=== PATIENT | female | born 1970 | race Caucasian/White ===

== ENCOUNTER 2024-09-01 20:49 | Emergency (ER) | payer OTHER, SELFPAY ==
[2024-09-01 20:52] VITALS: BP 130/90
[2024-09-01 21:18] LABS: % Eosinophils 1.8 % (0-6); % Immature Granulocytes 0.1 % (0-0.5); % Lymphocytes 32.6 % (20.5-51.1); % Monocytes 6.6 % (1.7-9.3); % Neutrophils 57.9 % (42.2-75.2); Absolute Basophils 0.1 10^3/uL (0-0.2); Absolute Eosinophils 0.2 10^3/uL (0-0.7); Absolute Lymphocytes 2.7 10^3/uL (1.2-3.4); Absolute Monocytes 0.5 10^3/uL (0.1-0.6); Absolute Neutrophils 4.7 10^3/uL (1.4-6.5); Hematocrit 40.6 % (37.0-47.0); Hemoglobin 13.4 g/dL (12.0-16.0); Mean Corpuscular Hgb 31.8 pg (27.0-31.0); Mean Corpuscular Volume 96.4 fL (81.0-99.0); Mean Platelet Volume 9.7 fL (7.4-10.4); Nucleated Red Blood Cells % 0 %; Platelet Count 320 10^3/uL (130-400); Red Blood Cell Count 4.21 10^6/uL (4.20-5.40); Red Cell Dist. Width 12.9 % (11.5-14.5); White Blood Cell Count 8.1 10^3/uL (4.8-10.8)
[2024-09-01 21:21] LABS: Urine Albumin Negative (Neg - Trace); Urine Bilirubin Negative (Negative); Urine Character Clear (Clear); Urine Color Yellow; Urine Glucose Negative (Negative); Urine Ketone Negative (Negative); Urine Leukocyte 2+ (Negative); Urine Nitrite Negative (Negative); Urine Occult Blood Negative (Negative); Urine Specific Gravity 1.015 (<1.030); Urine Urobilinogen Negative (Neg - 1+)
[2024-09-01 21:32] LABS: ALT (SGPT) 15 U/L (0-35); AST (SGOT) 22 U/L (14-36); Albumin 4.5 g/dl (3.5-5.0); Alkaline Phosphatase 60 U/L (38-126); Blood Urea Nitrogen 11 mg/dl (7-17); Calcium 9.8 mg/dl (8.4-10.2); Carbon Dioxide 28 mmol/L (22-30); Chloride 102 mmol/L (98-107); Glucose 97 mg/dl (70-99); Lipase 245 U/L (23-300); Potassium 4.4 mmol/L (3.5-5.1); Sodium 138 mmol/L (135-145); Total Bilirubin 0.4 mg/dl (0.2-1.3); Total Protein 8.2 g/dl (6.3-8.2); eGFR > 60.00
[2024-09-01 21:57] LABS: Urine Bacteria Few (Negative); Urine Red Blood Cell 0-2 /HPF (0-2); Urine Squamous Cell 21-25 /LPF (Few)
--- NOTE | 2024-09-02 00:36 | ED.GENMED ---
History of Present Illness
General
Chief Complaint: Abdominal Pain
Time Seen by Provider: 09/01/24 23:51
History of Present Illness
History of Present Illness:
53-year-old female history of Crohn's in remission not currently on medications presenting with right lower quadrant abdominal pain starting 4 to 5 days ago. Patient states that she started developing right back pain. Patient denies nausea,
vomiting or diarrhea. Patient reports she developed a rash this morning. Patient states that she was seen by her doctor on a telehealth visit and order a CT abdomen/pelvis but is waiting for insurance approval. Patient denies fever or urinary
symptoms.
Phy Exam
Physical Exam
Physical Exam:
General: Alert, no acute distress
Head: NCAT
Eyes: clear conjunctiva
Neck: supple
Cardiac: regular rate and rhythm, no murmur
Lungs: clear to auscultation bilaterally. No wheezes, rales, or rhonchi. Speaking full unlabored sentences. No respiratory distress.
Abdomen: soft, nondistended, rlq tenderness to palpation just above rash. no rebound or guarding. Right CVA tenderness, no left CVA tenderness
MSK: no lower extremity edema bilaterally. No deformity
Skin: warm, dry. erythematous vesicular rash to right flank/lower abdomen in single dermatome that does not cross midline (just inferior to right CVA).
Neuro: Alert and oriented x3. no focal deficits
Course
Orders/Labs/Results
Orders:
Orders
09/01/24 20:57
Electrocardiogram (*1) Urgent
Reason for Study: Abdominal Pain
EKG- Treatment ONCE
09/01/24 21:09
Complete Blood Count/With Diff Urgent
Comprehensive Metabolic Panel Urgent
Lipase Urgent
Urinalysis Reflex To Culture Urgent
Date Specimen was Collected: 09/01/24
Time Specimen was Collected: 20:57
Urine Microscopic Reflex Cult Urgent
Urine Culture Urgent
ESTEBAN Source: U
Specimen Description:
Date Specimen was Collected: 09/01/24
Time Specimen was Collected: 20:57
09/02/24 00:18
Abdomen/Pelvis w Contrast CT [CT Abd/pelvis W Iv Cont] Urgent
Comment:
Reason For Exam: right cva, rlq tenderness
Ketorolac [Toradol] 15 mg IV NOW STA
09/02/24 00:19
0.9% Sodium Chloride 1000 ml [Nss] 1,000 ml IV BOLUS
09/02/24 02:14
Valacyclovir HCl [Valtrex] 1,000 mg PO ONCE ONE
09/02/24 02:22
Gabapentin [Neurontin] 200 mg PO NOW STA
Abnormal Lab Results
09/01/24
21:09
MCH 31.8 H pg
(27.0-31.0)
Leukocyte Esterase Rfl 2+ A
(Negative)
Urine WBC (Reflex) 11-15 A /HPF
(0-5)
Urine Bacteria (Reflex) Few A
(Negative)
09/01/24 21:09
09/01/24 21:09
Vital Signs
Initial and Last Documented VS:
Initial Vital Signs
Temp Pulse Resp BP Pulse Ox
98.0 F 89 16 130/90 100
09/01/24 20:52 09/01/24 20:52 09/01/24 20:52 09/01/24 20:52 09/01/24 20:52
Last Documented Vital Signs
Temp Pulse Resp BP Pulse Ox
97.6 F 60 16 111/64 99
09/02/24 01:07 09/02/24 02:43 09/02/24 01:07 09/02/24 02:43 09/02/24 02:43
MDM/Problems Addressed
Differential Diagnosis Includes:
appendicitis, kidney stone, crohns flare, shingles
MDM/Problems Addressed:
Results reviewed. WBC 8.1. Electrolytes, creatinine within normal limits. UA shows possible UTI but has significant squamous cells. Given patient asymptomatic, will hold on treatment at this time. EKG shows normal sinus rhythm at 70 bpm with RI
180 QTc [address] no acute ischemic changes. CT abdomen pelvis shows normal appendix. No renal or obstructing ureteral stones. No hydronephrosis or hydroureter. Pelvis without evidence of obstruction. Gallbladder is unremarkable. No adnexal mass or
significant free fluid. As read by radiology. Discussed results with patient at bedside. Suspect pain from shingles. Will treat with Valtrex, gabapentin. Advised to follow-up with PCP. Patient expressed verbal understanding.
*Critical Care Note
Total Time (30-74mins, 75-104mins- exclusive of procedures): Not Applicable
ED Attending Note
-
Portions of this chart may have been created with voice recognition software.� Occasional wrong word or��sound alike� substitutions may have occurred due to the inherent limitations of voice recognition software.
Discharge Plan
Departure
Patient Disposition: Home (Routine Discharge)
Date of Disposition: 09/02/24
Time of Disposition: 02:15
Patient with high blood pressure during this ER visit?: Yes
Discharge Problem:
Shingles
Instructions: Shingles
Prescriptions:
New
valacyclovir [Valtrex] 1 gram tablet
1,000 mg PO Q8H Qty: 20 0RF
gabapentin 100 mg capsule
200 mg PO BID Qty: 60 0RF
Referrals:
Bib Bonner MD [Family Provider] -
Activity Restrictions/Additional Instructions:
Take Valrex 3 times daily for 7 days
Take ibuprofen 800mg every 8 hours as needed for pain
Take Gabapentin twice daily for pain. Gapapentin can be uptitrated, follow up with primary care doctor
Follow up with primary care doctor in 1-2 days
Return to the emergency department for fever or new/worsening symptoms
Interventions
Interventions:
*Risk Screen - Suicide Last Done: 09/01/24 20:52
*General Assessment Last Done: 09/02/24 01:00
*Neglect/Abuse Screening Last Done: 09/01/24 20:52
ED- Fall Risk Assessment Last Done: 09/02/24 01:07
WA-Lktidt-Ltedakbtpi Assessment Last Done: 09/02/24 01:07
Discharge Date and Time
Print Language: PERSIAN
[2024-09-02] MEDS: TORADOL 15 MG IV (00:57)
[2024-09-02] MEDS: NSS 1000 IV (00:58)
[2024-09-02 01:07] VITALS: BP 120/78
[2024-09-02 02:43] VITALS: BP 111/64
[2024-09-02] MEDS: VALTREX 1000 MG PO (02:46)
[2024-09-02] MEDS: NEURONTIN 200 MG PO (02:46)
== END 2024-09-02 02:52 | disposition home or self-care (01) ==
LOC: EMR 20:49
PROVIDERS: Student in an Organized Health Care Education/Training Program; EMERGENCY PHYSICIAN Emergency Medicine; FAMILY PHYSICIAN Family Medicine
DX: B02.9 Zoster without complications (principal); K50.90 Crohn's disease, unspecified, without complications
CPT/HCPCS: 99284; 96374; 74177; 80053; 81003; 81015; 83690; 85025; 87086; 93005; Q9967